=== PATIENT | female | born 1990 | race American Indian/Alaskan Native ===

== ENCOUNTER 2021-11-29 10:39 | Emergency (ER) | payer SELFPAY ==
[2021-11-29 11:20] VITALS: BP 136/84
[2021-11-29] MEDS ORDERED: CLINDAMYCIN 150 MG/ML VIAL 6 ML IM ONE (12:06)
--- NOTE | 2021-11-29 15:31 | Emergency Department Report ---
ED ENT HPI - General Chief complaint: Skin/Abscess/Foreign Body Stated complaint: FACIAL SWELLING Time Seen by Provider: 11/29/21 12:01 Source: patient Mode of arrival: Ambulatory Limitations: No Limitations - History of Present Illness Initial comments: Ms. De Jesus is a 31-year-old female that comes to the emergency room with dental pain for 2 days. She is on amoxicillin but it is not getting better. Patient is and worried about the fetus. Her last menstrual cycle was September 01. She is 12 weeks . She denies abdominal pain. No dysuria. No discharge. No vaginal bleeding. No fever or chills. No trismus. Patient taking p.o. MD complaint: tooth pain - Related Data Allergies Allergy/AdvReac Type Severity Reaction Status Date / Time pineapple Allergy Unknown Verified 11/29/21 11:20 shellfish derived Allergy Anaphylaxis Verified 11/29/21 11:20 ED Dental HPI - General Chief complaint: Skin/Abscess/Foreign Body Stated complaint: FACIAL SWELLING Time Seen by Provider: 11/29/21 12:01 Source: patient Mode of arrival: Ambulatory Limitations: No Limitations - Related Data Allergies Allergy/AdvReac Type Severity Reaction Status Date / Time pineapple Allergy Unknown Verified 11/29/21 11:20 shellfish derived Allergy Anaphylaxis Verified 11/29/21 11:20 ED Review of Systems ROS: Stated complaint: FACIAL SWELLING Other details as noted in HPI Comment: All other systems reviewed and negative ED Past Medical Hx - Past Medical History Previous Medical History?: No - Surgical History Past Surgical History?: No - Family History Family history: no significant - Social History Smoking Status: Never Smoker Substance Use Type: None ED Physical Exam - General Limitations: No Limitations General appearance: alert, in no apparent distress - Head Head exam: Present: atraumatic, normocephalic - Eye Eye exam: Present: normal appearance - ENT ENT exam: Present: mucous membranes moist - Expanded ENT Exam Expanded 1 - Other (Dental pain) - Neck Neck exam: Present: normal inspection - Respiratory Respiratory exam: Present: normal lung sounds bilaterally. Absent: respiratory distress - Cardiovascular Cardiovascular Exam: Present: regular rate, normal rhythm. Absent: systolic murmur, diastolic murmur, rubs, gallop - GI/Abdominal GI/Abdominal exam: Present: soft, normal bowel sounds - Extremities Exam Extremities exam: Present: normal inspection - Back Exam Back exam: Present: normal inspection - Neurological Exam Neurological exam: Present: alert, oriented X3 - Psychiatric Psychiatric exam: Present: normal affect, normal mood - Skin Skin exam: Present: warm, dry, intact, normal color. Absent: rash ED Course Vital Signs 11/29/21 11:17 Temperature 98.4 F Pulse Rate 107 H Respiratory 18 Rate Blood Pressure 136/84 [Left] O2 Sat by Pulse 99 Oximetry ED Medical Decision Making - Medical Decision Making I explained to the patient that the antibiotic is, take more than 2 days to work. I have given her IM Rocephin given her concerns. She has no abscess. No Ludewig's. No trismus. She is taking p.o. She is here with her mother. Of educated the patient that she can take Tylenol for pain. heart tones have been checked and are 150 using bedside ultrasound. Patient ambulatory, not ill nontoxic and taking p.o. Discharge home with discharge plan of care including diet, activity, medication and follow-up. She verbalizes understanding Vital Signs 11/29/21 11:17 Temperature 98.4 F Pulse Rate 107 H Respiratory 18 Rate Blood Pressure 136/84 [Left] O2 Sat by Pulse 99 Oximetry - Differential Diagnosis DENTAL PAIN Critical care attestation.: If time is entered above; I have spent that time in minutes in the direct care of this critically ill patient, excluding procedure time. ED Disposition Clinical Impression: Pain, dental Qualifiers: Weeks of gestation: 12 weeks Qualified Code(s): Z3A.12 - 12 weeks gestation of Disposition: HOME / SELF CARE / HOMELESS Is pt being admited?: No Does the pt Need Aspirin: No Condition: Stable Instructions: Acute Pain, Adult Additional Instructions: You can take Tylenol for pain. Continue your antibiotic until gone. Make an appointment for your dentist. Do not use that home Doppler to find the baby's heart rate Increase calcium products in your diet Stay well-hydrated with water follow-up with PCP as planned Referrals: [facility] [Outside] - 3-5 Days Forms: Work/School Release Form(ED) Time of Disposition: 15:44
[2021-11-29] MEDS ORDERED: CLINDAMYCIN 150 MG/ML VIAL 6 ML IM SCH (17:00)
== END 2021-11-29 17:02 | disposition home or self-care (01) ==
LOC: ED 10:39
DX: K08.89 Other specified disorders of teeth and supporting structures (principal); Z91.013 Allergy to seafood; Z91.018 Allergy to other foods; Z79.899 Other long term (current) drug therapy
CPT/HCPCS: 96372; 99282

== ENCOUNTER 2022-03-17 16:36 | Outpatient (CLI) | payer MEDICAID ==
[2022-03-17 16:54] VITALS: BP 117/68
[2022-03-17] MEDS ORDERED: HYDROcodone/ACETAMINOPHEN 5-325 MG TAB PO ONE (17:20)
[2022-03-17 17:28] LABS: Color,Urine Yellow (Yellow)
[2022-03-17] MEDS ORDERED: LACTATED RINGERS 500 ML IV ONE (17:30)
[2022-03-17 17:49] LABS: Bacteria,Urine 1+ /HPF (Negative); Mucus,Urine FEW /HPF; RBC,Urine < 1.0 /HPF (0.0-6.0); WBC,Urine < 1.0 /HPF (0.0-6.0)
== END 2022-03-17 18:00 | disposition home or self-care (01) ==
LOC: TRG 16:36 → APU 16:37 → TRG 18:00
PROVIDERS: ATTEND Obstetrics & Gynecology
DX: O47.03 False labor before 37 completed weeks of gestation, third trimester (principal); Z3A.28 28 weeks gestation of pregnancy
CPT/HCPCS: 81001